=== PATIENT | male | born 2000 | race Caucasian/White ===

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

== ENCOUNTER 2024-03-31 15:04 | Emergency (ER) | payer BC ==
[2024-03-31] MEDS ORDERED: IBUPROFEN 600 MG TABLET (FP) PO ONE (15:29)
[2024-03-31] MEDS ORDERED: DIPHTH,PERTUSS(ACELL),TET 0.5 ML DISP.SYRIN IM ONE (15:30)
[2024-03-31] MEDS: IBUPROFEN 600 MG TABLET (FP) PO ONE (15:34)
[2024-03-31] MEDS: DIPHTH,PERTUSS(ACELL),TET 0.5 ML DISP.SYRIN IM ONE (15:35)
[2024-03-31 15:46] VITALS: BP 132/74; PULSE 80; RESP 18; TEMP 98.4; BMI 25.1
== END 2024-03-31 16:40 | disposition home or self-care (01) ==
LOC: FER 15:04
PROC: 2W3QX1Z Immobilization of Right Lower Leg using Splint (ICD-10-PCS; principal; 2024-03-31)
PROC: 3E0234Z Introduction of Serum, Toxoid and Vaccine into Muscle, Percutaneous Approach (ICD-10-PCS; 2024-03-31)
DX: S92.341A Displaced fracture of fourth metatarsal bone, right foot, initial encounter for closed fracture (principal); S92.351A Displaced fracture of fifth metatarsal bone, right foot, initial encounter for closed fracture; W01.0XXA Fall on same level from slipping, tripping and stumbling without subsequent striking against object, initial encounter; Z23 Encounter for immunization
CPT/HCPCS: 73610-TC-RT-FY; 73630-TC-RT-FY; 90715; 99284-25